=== PATIENT | male | born 1995 | race American Indian/Alaskan Native ===

== ENCOUNTER 2018-01-23 15:15 | Emergency (ER) | payer OTHER, MEDICAID ==
[2018-01-23 15:22] VITALS: BP 123/62
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
== END 2018-01-23 17:58 | disposition home or self-care (01) ==
LOC: ED 15:15
DX: R07.89 Other chest pain (principal); F12.90 Cannabis use, unspecified, uncomplicated; Z88.0 Allergy status to penicillin; V49.49XA Driver injured in collision with other motor vehicles in traffic accident, initial encounter; W22.11XA Striking against or struck by driver side automobile airbag, initial encounter; Y93.89 Activity, other specified; Y99.8 Other external cause status; Y92.488 Other paved roadways as the place of occurrence of the external cause
CPT/HCPCS: 71046; 93005; 93010

== ENCOUNTER 2020-10-26 13:02 | Emergency (ER) | payer MEDICAID, OTHER ==
[2020-10-26 13:31] VITALS: BP 120/66
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
== END 2020-10-26 15:40 | disposition home or self-care (01) ==
LOC: ED 13:02
DX: S39.012A Strain of muscle, fascia and tendon of lower back, initial encounter (principal); F12.90 Cannabis use, unspecified, uncomplicated; Z79.899 Other long term (current) drug therapy; V49.59XA Passenger injured in collision with other motor vehicles in traffic accident, initial encounter; Y92.410 Unspecified street and highway as the place of occurrence of the external cause; Y93.89 Activity, other specified; Y99.8 Other external cause status
CPT/HCPCS: 99282

== ENCOUNTER 2020-11-02 11:43 | Emergency (ER) | payer OTHER ==
[2020-11-02 11:53] VITALS: BP 117/69
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
== END 2020-11-02 14:15 | disposition left against medical advice (07) ==
LOC: ED 11:43
DX: M79.604 Pain in right leg (principal); Z53.21 Procedure and treatment not carried out due to patient leaving prior to being seen by health care provider

== ENCOUNTER 2021-04-22 11:44 | Emergency (ER) | payer SELFPAY ==
[2021-04-22 15:23] VITALS: BP 116/50
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
== END 2021-04-22 15:37 | disposition home or self-care (01) ==
LOC: ED 11:44
DX: S09.90XA Unspecified injury of head, initial encounter (principal); F17.200 Nicotine dependence, unspecified, uncomplicated; F12.90 Cannabis use, unspecified, uncomplicated; Z72.89 Other problems related to lifestyle; Z79.899 Other long term (current) drug therapy; X58.XXXA Exposure to other specified factors, initial encounter; Y93.89 Activity, other specified; Y92.89 Other specified places as the place of occurrence of the external cause; Y99.8 Other external cause status
CPT/HCPCS: 99281